=== PATIENT | male | born 1995 | race Caucasian/White ===

== ENCOUNTER 2019-07-03 13:03 | Emergency (ER) | payer MEDICAID ==
--- NOTE | 2019-07-03 13:38 | ED Physician Documentation ---
PD HPI NVD - Stated complaint Stated Complaint: N/V - Chief complaint Chief Complaint: Abd Pain - History obtained from History obtained from: Patient - History of Present Illness Timing - onset: How many days ago (2) Timing - duration: Days (2) Timing - details: Gradual onset, Still present Associated symptoms: Abdominal pain, Hematemesis, Dizzy, Near syncope / syncope, Loss of appetite Contributing factors: Other (had red meat) Improved by: Vomiting Worsened by: Eating Similar symptoms before: Diagnosis (stomach sensitivity) Recently seen: Not recently seen - Additonal information Additional information: Previously well 24-year-old male who has a history of a touchy stomach and frequent episodes of vomiting has developed a episode of vomiting beginning 2 nights ago and he has vomited some black looking material and now he has the dry heaves. He has had this happen to him previously after eating red meat and he did eat red meat. He states that he has had this happening to him since he was in high school and before he ever used cannabis. He does state that he has periods of time where he has vomiting for several days. He states this can be b rought on by stress and by eating red meat. He downplays his cannabis use to 2 bowls at night to help him sleep. Review of Systems Constitutional: denies: Fever Eyes: denies: Decreased vision Ears: denies: Ear pain Nose: denies: Congestion Throat: denies: Sore throat Cardiac: denies: Chest pain / pressure, Palpitations Respiratory: denies: Dyspnea, Cough GI: reports: Abdominal Pain, Nausea, Vomiting, Hematemesis. denies: Constipation, Diarrhea : denies: Dysuria, Frequency PD PAST MEDICAL HISTORY - Allergies Allergies/Adverse Reactions: Allergies Allergy/AdvReac Type Severity Reaction Status Date / Time No Known Drug Allergies Allergy Verified 07/03/19 13:09 PD ED PE NORMAL - General General: Alert and oriented X 3, Well developed/nourished, Other (Thin appearing male who is anxious.) - HEENT HEENT: Atraumatic, PERRL, EOMI - Neck Neck: Supple, no meningeal sign, No bony TTP - Cardiac Cardiac: RRR, No murmur - Respiratory Respiratory: No respiratory distress, Clear bilaterally - Abdomen Abdomen: Normal bowel sounds, Soft, Non tender, Non distended - Back Back: No CVA TTP, No spinal TTP - Derm Derm: Normal color, Warm and dry, No rash - Extremities Extremities: No deformity, No edema, No calf tenderness / cord - Neuro Neuro: Alert and oriented X 3, 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, No motor deficit, No sensory deficit, Normal speech Eye Opening: Spontaneous Motor: Obeys Commands Verbal: Oriented GCS Score: 15 - Psych Psych: Normal mood, Normal affect Results - Vitals Vitals: Vital Signs - 24 hr 07/03/19 07/03/19 13:09 15:29 Temperature 37.3 C Heart Rate 92 60 Respiratory 18 17 Rate Blood Pressure 137/90 H 137/85 H O2 Saturation 97 100 Oxygen O2 Source Room air - Labs Labs: Laboratory Tests 07/03/19 07/03/19 13:40 13:40 WBC 20.7 H RBC 5.95 Hgb 19.1 H Hct 54.0 H MCV 90.8 MCH 32.1 H MCHC 35.4 RDW 12.5 Plt Count 343 MPV 9.6 Neut # (Auto) 17.5 H Lymph # (Auto) 1.1 L [place] # (Auto) 1.8 H Eos # (Auto) 0.0 Baso # (Auto) 0.1 Absolute Nucleated RBC 0.00 Band Neuts % (Manual) Not Reportable Abnorm Lymph % (Manual) Not Reportable Nucleated RBC % 0.0 Neutrophils # (Manual) Not Reportable Lymphocytes # (Manual) Not Reportable Monocytes # (Manual) Not Reportable Eosinophils # (Manual) Not Reportable Basophils # (Manual) Not Reportable Differential Comment MANUAL=AUTO DIFF WBC Morphology NORMAL APPEARANCE Platelet Estimate NORMAL (130-450,000) Platelet Morphology NORMAL APPEARANCE RBC Morph Micro Appear NORMAL APPEARANCE Sodium 131 L Potassium 3.6 Chloride 84 L Carbon Dioxide 23 Anion Gap 24.0 H BUN 67 H Creatinine 4.0 H Estimated GFR (MDRD) 18 L Glucose 141 H Calcium 10.5 H Total Bilirubin 1.1 H AST 38 ALT 20 Alkaline Phosphatase 70 Total Protein 11.0 H Albumin 6.4 H Globulin 4.6 H Albumin/Globulin Ratio 1.4 Lipase 25 Ethyl Alcohol < 5.0 Procedures - IVC sono (time) 1330 Bedside IVC sono: IVC measures (cm) (0.87), IVC collapsed c insp (cm) (complete), Dehydration (est 2 liter deficit) PD MEDICAL DECISION MAKING - ED course Complexity details: reviewed results, re-evaluated patient, considered differential, d/w patient ED course: 24-year-old male with acute vomiting has had this happen to him previously he is found to be 2 L dehydrated on interrogation the inferior vena cava and an intravenous saline is begun as well as Zofran we will check his blood counts.The patient does of course have improvement with use of hydration he is able to produce some urine his blood work to our is concerning for significant dehydration with acute kidney injury. His kidney injury is concerning and that his creatinine is 4 and he indicates he is only been sick for 2 days. I have discussed the findings with the patient and I have asked him to stay in the hospital overnight for continued hydration and observation and repeat labs. He is amenable to this.Dr. Jimenez is consulted in the case and graciously agrees to admit to the patient to the hospital for observation and repeat laboratory studies and continued hydration. Departure - Departure Disposition: ED Place in Observation Clinical Impression: Dehydration, Acute kidney injury Vomiting Qualifiers: Vomiting type: cyclical vomiting syndrome unrelated to migraine Qualified Code (s): R11.15 - Cyclical vomiting syndrome unrelated to migraine Condition: Fair
[2019-07-03] MEDS: ONDANSETRON 4 MG/2 ML VIAL IVP STA (13:46)
[2019-07-03] MEDS: SODIUM CHLORIDE 0.9% 1,000 ML IV ONE ×2 (13:46→15:00)
[2019-07-03 13:48] LABS: BASOPHILS # (AUTO) 0.1 10^3/uL (0.0-0.1); BASOPHILS % (AUTO) 0.3 %; HGB - HEMOGLOBIN 19.1 g/dL (14.0-18.0); LYMPHOCYTES # (AUTO) 1.1 10^3/uL (1.5-3.5); LYMPHOCYTES % (AUTO) 5.5 %; MEAN CORPUSCULAR HEMOGLOBIN 32.1 pg (27.0-31.0); MEAN CORPUSCULAR HGB CONC 35.4 g/dL (32.0-36.0); MEAN CORPUSCULAR VOLUME 90.8 fL (80.0-94.0); MEAN PLATELET VOLUME 9.6 fL (7.4-11.4); MONOCYTES # (AUTO) 1.8 10^3/uL (0.0-1.0); MONOCYTES % (AUTO) 8.9 %; NEUTROPHILS # (AUTO) 17.5 10^3/uL (1.5-6.6); NEUTROPHILS % (AUTO) 84.5 %; PLT - PLATELET COUNT 343 10^3/uL (130-450); RED BLOOD COUNT 5.95 10^6/uL (4.70-6.10); RED CELL DISTRIBUTION WIDTH 12.5 % (12.0-15.0); WHITE BLOOD COUNT 20.7 x10^3/uL (4.8-10.8)
[2019-07-03] MEDS: DEXAMETHASONE 10 MG/ML VIAL IVP STA (13:52)
[2019-07-03 14:02] LABS: ALBUMIN 6.4 g/dL (3.2-5.5); ALBUMIN/GLOBULIN RATIO 1.4 (1.0-2.2); ALKALINE PHOSPHATASE 70 IU/L (42-121); ALT ALANINE AMINOTRANSFERASE 20 IU/L (10-60); AST ASPARTATE AMINOTRANSFERASE 38 IU/L (10-42); BILIRUBIN,TOTAL 1.1 mg/dL (0.2-1.0); BUN - BLOOD UREA NITROGEN 67 mg/dL (6-20); CALCIUM 10.5 mg/dL (8.5-10.3); CARBON DIOXIDE - CO2 23 mmol/L (21-32); CHLORIDE 84 mmol/L (101-111); GLUCOSE 141 mg/dL (70-100); LIPASE 25 U/L (22-51); SODIUM 131 mmol/L (135-145)
[2019-07-03 14:12] LABS: PLATELET MORPHOLOGY NORMAL APPEARANCE (NORMAL); RBC MORPHOLOGY (MULTIPLE) NORMAL APPEARANCE (NORMAL)
[2019-07-03 14:13] LABS: DIFFERENTIAL COMMENT MANUAL=AUTO DIFF; PLATELET ESTIMATE, MANUAL NORMAL (130-450,000) (NORMAL)
[2019-07-03 15:59] VITALS: BP 110/70
[2019-07-03] MEDS ORDERED: ONDANSETRON 4 MG/2 ML VIAL IVP PRN (16:12)
[2019-07-03] MEDS ORDERED: HYDROmorphone 0.5 MG/0.5 ML SYRINGE IVP PRN (16:12)
[2019-07-03] MEDS ORDERED: SODIUM CHLORIDE FLUSH 0.9% 10 ML SYRINGE IVP PRN (16:12)
[2019-07-03] MEDS ORDERED: PROCHLORPERAZINE 10 MG/2 ML VIAL IVP PRN (16:12)
[2019-07-03] MEDS ORDERED: SODIUM CHLORIDE 0.9% 1,000 ML IV SCH (17:00)
[2019-07-03] MEDS ORDERED: SODIUM CHLORIDE FLUSH 0.9% 10 ML SYRINGE IVP SCH (17:00)
[2019-07-03] MEDS ORDERED: FAMOTIDINE 20 MG/2 ML SYRINGE IVP SCH (21:00)
== END 2019-07-03 16:38 | disposition left against medical advice (07) ==
LOC: ED 13:03
DX: E86.0 Dehydration (principal); N17.9 Acute kidney failure, unspecified; R11.15 Cyclical vomiting syndrome unrelated to migraine; Z53.20 Procedure and treatment not carried out because of patient's decision for unspecified reasons
CPT/HCPCS: 36415; 80053; 80320; 83690; 85025; 96361; 96374; 96375; 99284

== ENCOUNTER 2019-07-04 09:08 | Emergency (ER) | payer MEDICAID ==
--- NOTE | 2019-07-04 09:40 | ED Physician Documentation ---
PD HPI NVD - Stated complaint Stated Complaint: VOMITING - Chief complaint Chief Complaint: Abd Pain - History obtained from History obtained from: Patient - History of Present Illness Timing - onset: How many days ago (several) Timing - duration: Days (he had had 2-3 days of nausea and vomiting and seen in ER yesterday with IV fluids and antiemetics. He says his nausea has improved and he is taking oral fluids since yesterday. Had elevated creatinine of 4 yesterday and had been offered admission to hospital but opted for home and was to return for repeat labs today. Here for eval/labs. He says he is feeling improved.) Timing - details: Abrupt onset, Now resolved Associated symptoms: Loss of appetite. No: Fever, Near syncope / syncope, Dysuria Recently seen: Emergency Dept (yesterday) Review of Systems Constitutional: denies: Fever Nose: denies: Rhinorrhea / runny nose, Congestion Throat: denies: Sore throat Respiratory: denies: Cough GI: reports: Nausea, Vomiting, Diarrhea. denies: Abdominal Swelling, Hematemesis Neurologic: reports: Generalized weakness Endocrine: denies: Weight loss (states has always been thin, denies eating disorder.) PD PAST MEDICAL HISTORY - Past Medical History Cardiovascular: None Respiratory: None Neuro: Seizure disorder Endocrine/Autoimmune: None GI: None : None HEENT: None Psych: None Musculoskeletal: None Derm: None - Past Surgical History Past Surgical History: No - Present Medications Home Medications: Ambulatory Orders Medication Instructions Recorded Confirmed Famotidine 20 mg PO DAILY #30 tablet 07/04/19 Ondansetron Odt [Zofran] 4 mg TL Q6H PRN #20 tablet 07/04/19 - Allergies Allergies/Adverse Reactions: Allergies Allergy/AdvReac Type Severity Reaction Status Date / Time No Known Drug Allergies Allergy Verified 07/04/19 09:13 - Social History Does the pt smoke?: Yes Smoking Status: Current every day smoker Does the pt drink ETOH?: No Does the pt have substance abuse?: Yes Substance Use and Type: Marijuana - Immunizations Immunizations are current?: Yes - POLST Patient has POLST: No PD ED PE NORMAL - Vitals Vital signs reviewed: Yes - General General: Alert and oriented X 3, No acute distress, Well developed/nourished - HEENT HEENT: Pharynx benign. No: Moist mucous membranes - Neck Neck: Supple, no meningeal sign, No adenopathy - Cardiac Cardiac: RRR, No murmur - Respiratory Respiratory: Clear bilaterally - Abdomen Abdomen: Soft, Non tender, Non distended, Other (generally thin) Results - Vitals Vitals: Oxygen O2 Source Room air - Labs Labs: Laboratory Tests 07/04/19 07/04/19 07/04/19 09:35 09:35 09:35 WBC 15.2 H RBC 5.10 Hgb 16.6 Hct 47.3 MCV 92.7 MCH 32.5 H MCHC 35.1 RDW 12.4 Plt Count 293 MPV 9.5 Neut # (Auto) 11.4 H Lymph # (Auto) 1.6 [place] # (Auto) 2.0 H Eos # (Auto) 0.1 Baso # (Auto) 0.0 Absolute Nucleated RBC 0.00 Nucleated RBC % 0.0 Manual Slide Review Indicated RBC Morph Micro Appear 1+ ANISOCYTOSIS Sodium 132 L Potassium 3.6 Chloride 90 L Carbon Dioxide 30 Anion Gap 12.0 BUN 31 H Creatinine 0.9 Estimated GFR (MDRD) 102 Glucose 104 H Calcium 9.9 Magnesium 2.6 Total Bilirubin 1.2 H AST 41 ALT 18 Alkaline Phosphatase 56 Total Protein 8.9 H Albumin 5.3 Globulin 3.7 Albumin/Globulin Ratio 1.5 Lipase 66 H Urine Color Urine Clarity Urine pH Ur Specific [place] Urine Protein Urine Glucose (UA) Urine Ketones Urine Occult Blood Urine Nitrite Urine Bilirubin Urine Urobilinogen Ur Leukocyte Esterase Urine RBC Urine WBC Ur Squamous Epith Cells Urine Bacteria Ur Microscopic Review Urine Culture Comments 07/04/19 09:43 WBC RBC Hgb Hct MCV MCH MCHC RDW Plt Count MPV Neut # (Auto) Lymph # (Auto) [place] # (Auto) Eos # (Auto) Baso # (Auto) Absolute Nucleated RBC Nucleated RBC % Manual Slide Review RBC Morph Micro Appear Sodium Potassium Chloride Carbon Dioxide Anion Gap BUN Creatinine Estimated GFR (MDRD) Glucose Calcium Magnesium Total Bilirubin AST ALT Alkaline Phosphatase Total Protein Albumin Globulin Albumin/Globulin Ratio Lipase Urine Color DARK YELLOW Urine Clarity CLEAR Urine pH 6.0 Ur Specific [place] 1.025 Urine Protein 30 H Urine Glucose (UA) NEGATIVE Urine Ketones NEGATIVE Urine Occult Blood TRACE-INTA Urine Nitrite NEGATIVE Urine Bilirubin NEGATIVE Urine Urobilinogen 0.2 (NORMAL) Ur Leukocyte Esterase NEGATIVE Urine RBC 0-5 Urine WBC 0-3 Ur Squamous Epith Cells RARE Squamous Urine Bacteria Rare Ur Microscopic Review INDICATED Urine Culture Comments NOT INDICATED PD MEDICAL DECISION MAKING - ED course Complexity details: reviewed results (kidney function has improved quite quickly. ), d/w patient Departure - Departure Disposition: 01 Home, Self Care Clinical Impression: Nausea and vomiting Qualifiers: Vomiting type: unspecified Vomiting Intractability: unspecified Qualified Code(s): R11.2 - Nausea with vomiting, unspecified Condition: Stable Record reviewed to determine appropriate education?: Yes Instructions: ED Nausea Vomiting Follow-Up: [facility] [Provider Group] [facility] [Provider Group] Prescriptions: Famotidine 20 mg PO DAILY #30 tablet Ondansetron Odt [Zofran] 4 mg TL Q6H PRN #20 tablet PRN Reason: Nausea / Vomiting Comments: Stay well-hydrated. Your blood tests improved considerably to normal from yesterday to today. Use ondansetron if needed for nausea. You certainly likely have an irritated stomach from the vomiting and so use some famotidine acid reducing medicine daily for at least a week. Consider it for a month or so and see if you just do not have any stomach symptoms as this may have been an irritated stomach (desiree ritis) as a cause of it. I gave a couple of numbers for clinics in [facility] for follow-up. Discharge Date/Time: 07/04/19 11:11
[2019-07-04 09:49] LABS: BASOPHILS % (AUTO) 0.2 %; EOSINOPHILS # (AUTO) 0.1 10^3/uL (0.0-0.7); EOSINOPHILS % (AUTO) 0.4 %; HGB - HEMOGLOBIN 16.6 g/dL (14.0-18.0); LYMPHOCYTES # (AUTO) 1.6 10^3/uL (1.5-3.5); LYMPHOCYTES % (AUTO) 10.8 %; MEAN CORPUSCULAR HEMOGLOBIN 32.5 pg (27.0-31.0); MEAN CORPUSCULAR HGB CONC 35.1 g/dL (32.0-36.0); MEAN CORPUSCULAR VOLUME 92.7 fL (80.0-94.0); MEAN PLATELET VOLUME 9.5 fL (7.4-11.4); MONOCYTES % (AUTO) 13.1 %; NEUTROPHILS # (AUTO) 11.4 10^3/uL (1.5-6.6); NEUTROPHILS % (AUTO) 74.8 %; PLT - PLATELET COUNT 293 10^3/uL (130-450); RED CELL DISTRIBUTION WIDTH 12.4 % (12.0-15.0); WHITE BLOOD COUNT 15.2 x10^3/uL (4.8-10.8)
[2019-07-04 10:03] LABS: ALBUMIN 5.3 g/dL (3.2-5.5); ALBUMIN/GLOBULIN RATIO 1.5 (1.0-2.2); BILIRUBIN,TOTAL 1.2 mg/dL (0.2-1.0); CALCIUM 9.9 mg/dL (8.5-10.3); CREATININE 0.9 mg/dL (0.6-1.2); TOTAL PROTEIN 8.9 g/dL (6.7-8.2)
[2019-07-04] MEDS: SODIUM CHLORIDE 0.9% 1,000 ML IV ONE (10:05)
[2019-07-04 10:07] LABS: RBC MORPHOLOGY (MULTIPLE) 1+ ANISOCYTOSIS (NORMAL)
[2019-07-04 10:15] LABS: BILIRUBIN,URINE NEGATIVE (NEGATIVE); GLUCOSE, URINE (UA) NEGATIVE (NEGATIVE); KETONES,URINE (UA) NEGATIVE (NEGATIVE); LEUKOCYTE ESTERASE, URINE NEGATIVE (NEGATIVE); NITRITE,URINE NEGATIVE (NEGATIVE); OCCULT BLOOD,URINE TRACE-INTA (NEGATIVE); PROTEIN,URINE 30 mg/dL (NEGATIVE); UROBILINOGEN,URINE 0.2 (NORMAL) E.U./dL (NORMAL)
[2019-07-04 10:16] LABS: CLARITY,URINE CLEAR (CLEAR)
[2019-07-04 10:26] LABS: BACTERIA,URINE Rare /HPF (None Seen); RBC,URINE 0-5 /HPF (0-5); SQUAMOUS EPITHELIAL CELL,UR RARE Squamous (<= Few)
[2019-07-04 11:11] VITALS: BP 145/72
== END 2019-07-04 11:11 | disposition home or self-care (01) ==
LOC: ED 09:08
DX: R11.2 Nausea with vomiting, unspecified (principal); F17.200 Nicotine dependence, unspecified, uncomplicated
CPT/HCPCS: 36415; 80053; 81001; 81003; 83690; 83735; 85025; 87086; 99283

== ENCOUNTER 2021-10-08 13:46 | Outpatient (CLI) | payer OTHER ==
[2021-10-08 19:17] LABS: BASOPHILS % (AUTO) 0.4 %; EOSINOPHILS % (AUTO) 0.3 %; HCT - HEMATOCRIT 45.3 % (42.0-52.0); HGB - HEMOGLOBIN 15.4 g/dL (14.0-18.0); LYMPHOCYTES % (AUTO) 5.6 %; MEAN CORPUSCULAR HEMOGLOBIN 32.8 pg (27.0-31.0); MEAN CORPUSCULAR VOLUME 96.6 fL (80.0-94.0); MEAN PLATELET VOLUME 10.6 fL (7.4-11.4); MONOCYTES % (AUTO) 9.3 %; NEUTROPHILS % (AUTO) 83.6 %; PLT - PLATELET COUNT 288 10^3/uL (130-450); RED BLOOD COUNT 4.69 10^6/uL (4.70-6.10); RED CELL DISTRIBUTION WIDTH 12.4 % (12.0-15.0); WHITE BLOOD COUNT 23.2 x10^3/uL (4.8-10.8)
[2021-10-08 19:28] LABS: ABNORMAL LYMPHS % (MANUAL) 0 %
[2021-10-08 19:51] LABS: ALBUMIN 4.3 g/dL (3.2-5.5); ALBUMIN/GLOBULIN RATIO 0.9 (1.0-2.2); BILIRUBIN,TOTAL 0.9 mg/dL (0.2-1.0); CALCIUM 9.8 mg/dL (8.5-10.3); CREATININE 0.9 mg/dL (0.6-1.2); CRP - C-REACTIVE PROTEIN 16.4 mg/dL (0-1.0); POTASSIUM 4.2 mmol/L (3.5-5.0); TOTAL PROTEIN 9.1 g/dL (6.7-8.2)
[2021-10-08 20:16] LABS: BAND NEUTROPHILS % (MANUAL) 2 %; EOSINOPHILS # (MANUAL) 0.2 10^3/uL (0-0.7); LYMPHOCYTES # (MANUAL) 0.7 10^3/uL (1.5-3.5); LYMPHOCYTES % (MANUAL) 3 %; MONOCYTES # (MANUAL) 0.5 10^3/uL (0.0-1.0); NEUTROPHILS # (MANUAL) 21.8 10^3/uL (1.5-6.6)
[2021-10-08 20:17] LABS: DIFFERENTIAL COMMENT MANUAL DIFFERENTIAL; PLATELET ESTIMATE, MANUAL NORMAL (130-450,000) (NORMAL); PLATELET MORPHOLOGY NORMAL APPEARANCE (NORMAL); RBC MORPHOLOGY (MULTIPLE) NORMAL APPEARANCE (NORMAL); WBC MORPHOLOGY (MULTIPLE) NORMAL APPEARANCE (NORMAL)
== END 2021-10-08 13:47 | disposition home or self-care (01) ==
LOC: LAB.S 13:46
PROVIDERS: ATTEND Registered Nurse
DX: L03.113 Cellulitis of right upper limb (principal)
CPT/HCPCS: 36415; 80053; 85025; 86140

== ENCOUNTER 2021-10-08 14:42 | Emergency (ER) | payer OTHER ==
[2021-10-08] MEDS ORDERED: MORPHINE 10 MG/ML VIAL IVP STA (15:01)
[2021-10-08] MEDS ORDERED: cefTRIAXone 1 GM in SODIUM CHLORIDE 0.9% MINIBAG 100 ML IV STA (15:01)
--- NOTE | 2021-10-08 15:03 | ED Physician Documentation ---
History of Present Illness - Stated complaint Stated Complaint: R HAND INFECTION - Chief complaint Chief Complaint: Ext Problem - History obtained from History obtained from: Patient - History of Present Illness Timing: How many days ago (2) - Additonal information Additional information: 26-year-old male with no reported past medical history presents for ring finger pain and swelling for 2 days. Patient states that he was picking up a couch cushion when something sharp poked him in the side of his right ring finger. He states that it rapidly became red and swollen and very painful. He presented to the walk-in clinic, who referred him to the ER for further treatment. Patient states that his ring finger is extremely painful. He has been trying to push down the swelling, but it has not been successful. Any movement hurts his finger. Review of Systems Ten Systems: 10 systems reviewed and negative Constitutional: denies: Fever, Chills, Myalgias Nose: denies: Rhinorrhea / runny nose, Congestion, Foreign Body Throat: denies: Dental pain / toothache, Oral lesions / sores, Sore throat GI: denies: Abdominal Pain, Abdominal Swelling, Nausea, Vomiting, Constipation, Diarrhea : denies: Dysuria, Frequency, Hesitancy Skin: reports: Rash Musculoskeletal: reports: Extremity pain PD PAST MEDICAL HISTORY - Past Medical History Cardiovascular: None Respiratory: None Neuro: Seizure disorder Endocrine/Autoimmune: None GI: None : None HEENT: None Psych: None Musculoskeletal: None Derm: None - Past Surgical History Past Surgical History: No - Present Medications Home Medications: Ambulatory Orders Medication Instructions Recorded Confirmed Famotidine 20 mg PO DAILY #30 tablet 07/04/19 Ondansetron Odt [Zofran] 4 mg TL Q6H PRN #20 tablet 07/04/19 - Allergies Allergies/Adverse Reactions: Allergies Allergy/AdvReac Type Severity Reaction Status Date / Time No Known Drug Allergies Allergy Verified 10/08/21 14:54 - Social History Does the pt smoke?: Yes Smoking Status: Current every day smoker Does the pt drink ETOH?: No Does the pt have substance abuse?: Yes - Immunizations Immunizations are current?: Yes - POLST Patient has POLST: No PD ED PE NORMAL - Vitals Vital signs reviewed: Yes - General General: Alert and oriented X 3, Well developed/nourished, Other (IN PAIN) - HEENT HEENT: Atraumatic, PERRL, EOMI, Ears normal, Moist mucous membranes - Neck Neck: Supple, no meningeal sign, No bony TTP, No JVD - Cardiac Cardiac: No murmur, Strong equal pulses, Other (TACHYCARDIA) - Respiratory Respiratory: No respiratory distress, Clear bilaterally - Abdomen Abdomen: Soft, Non tender, Non distended - Back Back: No CVA TTP, No spinal TTP - Derm Derm: Warm and dry, Other (erythema R ring finger) - Extremities Extremities: Other (R ring finger erythema, sausage digit, pain with passive extension) - Neuro Neuro: Alert and oriented X 3, 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, No motor deficit, No sensory deficit, Normal speech - Psych Psych: Normal mood, Normal affect Results - Vitals Vitals: Oxygen O2 Source Room air - Labs Labs: Laboratory Tests 10/08/21 10/08/21 10/08/21 15:07 15:17 15:17 WBC 21.1 H RBC 4.86 Hgb 15.9 Hct 45.7 MCV 94.0 MCH 32.7 H MCHC 34.8 RDW 12.0 Plt Count 266 MPV 9.8 Neut # (Auto) Not Reportable Lymph # (Auto) Not Reportable [place] # (Auto) Not Reportable Eos # (Auto) Not Reportable Baso # (Auto) Not Reportable Absolute Nucleated RBC Not Reportable Total Counted 100 Band Neuts % (Manual) 2 Abnorm Lymph % (Manual) 0 Nucleated RBC % Not Reportable Neutrophils # (Manual) 17.3 H Lymphocytes # (Manual) 1.5 Monocytes # (Manual) 2.3 H Eosinophils # (Manual) 0.0 Basophils # (Manual) 0.0 Differential Comment MANUAL DIFFERENTIAL WBC Morphology NORMAL APPEARANCE Platelet Estimate NORMAL (130-450,000) Platelet Morphology NORMAL APPEARANCE RBC Morph Micro Appear NORMAL APPEARANCE ESR Sodium 131 L Potassium 3.6 Chloride 91 L Carbon Dioxide 25 Anion Gap 15.0 H BUN 11 Creatinine 0.8 Estimated GFR (MDRD) 115 Glucose 111 H Calcium 10.2 Total Bilirubin 0.9 AST 33 ALT 30 Alkaline Phosphatase 77 C-Reactive Protein 18.9 H Total Protein 9.7 H Albumin 4.7 Globulin 5.0 H Albumin/Globulin Ratio 0.9 L SARS-CoV-2 (PCR) NOT DETECTED 10/08/21 15:17 WBC RBC Hgb Hct MCV MCH MCHC RDW Plt Count MPV Neut # (Auto) Lymph # (Auto) [place] # (Auto) Eos # (Auto) Baso # (Auto) Absolute Nucleated RBC Total Counted Band Neuts % (Manual) Abnorm Lymph % (Manual) Nucleated RBC % Neutrophils # (Manual) Lymphocytes # (Manual) Monocytes # (Manual) Eosinophils # (Manual) Basophils # (Manual) Differential Comment WBC Morphology Platelet Estimate Platelet Morphology RBC Morph Micro Appear ESR 33 H Sodium Potassium Chloride Carbon Dioxide Anion Gap BUN Creatinine Estimated GFR (MDRD) Glucose Calcium Total Bilirubin AST ALT Alkaline Phosphatase C-Reactive Protein Total Protein Albumin Globulin Albumin/Globulin Ratio SARS-CoV-2 (PCR) PD MEDICAL DECISION MAKING - ED course Complexity details: reviewed results, re-evaluated patient, d/w patient, d/w family ED course: Right ring finger pain and swelling, has spread rapidly over the last 2 days. Concern is for flexor tenosynovitis. Patient does have sausage digit, pain along the flexor sheath, pain with even passive extension, finger is held in flexed position. We will give broad-spectrum IV antibiotics, plan to transfer. Accepted by [facility] for transfer. Departure - Departure Disposition: 02 Transfer Acute Care Hosp Clinical Impression: Flexor tenosynovitis of finger Condition: Stable Discharge Date/Time: 10/08/21 20:04
--- NOTE | 2021-10-08 15:23 | XRAY Report ---
PROCEDURE: Finger(s) RT INDICATIONS: RING FINGER INFECTION TECHNIQUE: AP hand, 2 views of the right fourth finger(s) acquired. COMPARISON: None FINDINGS: Bones: No fractures or dislocations. No suspicious bony lesions. No osseous erosions. No periosteal reaction. Soft tissues: No suspicious soft tissue calcifications. No soft tissue gas. IMPRESSION: No jake evidence of osteomyelitis. Please note plain-film radiographs can be insensitive to changes of osteomyelitis in the initial 15 days of the disease. If there is continued clinical concern for os teomyelitis, consider three-phase nuclear medicine bone scan or MRI for additional evaluation. Reviewed by: Brigette Greenfield MD, PhD on 10/08/2021 3:21 PM PDT Approved by: Brigette Greenfield MD, PhD on 10/08/2021 3:21 PM PDT Station ID: [id number]
[2021-10-08 15:26] LABS: BASOPHILS % (AUTO) 0.4 %; EOSINOPHILS % (AUTO) 0.2 %; HCT - HEMATOCRIT 45.7 % (42.0-52.0); HGB - HEMOGLOBIN 15.9 g/dL (14.0-18.0); LYMPHOCYTES % (AUTO) 6.5 %; MEAN CORPUSCULAR HEMOGLOBIN 32.7 pg (27.0-31.0); MEAN CORPUSCULAR HGB CONC 34.8 g/dL (32.0-36.0); MEAN PLATELET VOLUME 9.8 fL (7.4-11.4); NEUTROPHILS % (AUTO) 83.2 %; PLT - PLATELET COUNT 266 10^3/uL (130-450); RED BLOOD COUNT 4.86 10^6/uL (4.70-6.10); WHITE BLOOD COUNT 21.1 x10^3/uL (4.8-10.8)
[2021-10-08 15:30] LABS: ABNORMAL LYMPHS % (MANUAL) 0 %
[2021-10-08 15:55] LABS: ALBUMIN 4.7 g/dL (3.2-5.5); ALBUMIN/GLOBULIN RATIO 0.9 (1.0-2.2); BILIRUBIN,TOTAL 0.9 mg/dL (0.2-1.0); CALCIUM 10.2 mg/dL (8.5-10.3); CREATININE 0.8 mg/dL (0.6-1.2); CRP - C-REACTIVE PROTEIN 18.9 mg/dL (0-1.0); POTASSIUM 3.6 mmol/L (3.5-5.0); TOTAL PROTEIN 9.7 g/dL (6.7-8.2)
[2021-10-08] MEDS ORDERED: VANCOMYCIN INJ 1 GM in SODIUM CHLORIDE 0.9% 500 ML IV SCH (16:00)
[2021-10-08 16:03] LABS: BAND NEUTROPHILS % (MANUAL) 2 %; LYMPHOCYTES # (MANUAL) 1.5 10^3/uL (1.5-3.5); LYMPHOCYTES % (MANUAL) 7 %; MONOCYTES # (MANUAL) 2.3 10^3/uL (0.0-1.0); NEUTROPHILS # (MANUAL) 17.3 10^3/uL (1.5-6.6)
[2021-10-08 16:04] LABS: DIFFERENTIAL COMMENT MANUAL DIFFERENTIAL; PLATELET ESTIMATE, MANUAL NORMAL (130-450,000) (NORMAL); PLATELET MORPHOLOGY NORMAL APPEARANCE (NORMAL); RBC MORPHOLOGY (MULTIPLE) NORMAL APPEARANCE (NORMAL); WBC MORPHOLOGY (MULTIPLE) NORMAL APPEARANCE (NORMAL)
--- NOTE | 2021-10-08 18:50 | ED Physician Documentation ---
ED Addendum - Addendum Addendum: 10/08/21 18:49 Care handed over me to me by Dr. Moreland at shift change. He has been accepted to [facility] ED by Dr. Rimma Hewitt at 6:49 PM and cobras are completed. He is stable for transport. Diagnosis: Flexor tenosynovitis of the right hand Condition: Stable Disposition: Transferred to [facility] ED 10/08/21 21:44
[2021-10-08 20:05] VITALS: BP 135/89
== END 2021-10-08 20:04 | disposition short-term general hospital (02) ==
LOC: ED 14:42
DX: S63.614A Unspecified sprain of right ring finger, initial encounter (principal); W26.8XXA Contact with other sharp object(s), not elsewhere classified, initial encounter; Y93.89 Activity, other specified; F17.200 Nicotine dependence, unspecified, uncomplicated; Z20.822 Contact with and (suspected) exposure to COVID-19
CPT/HCPCS: 36415; 73140; 80053; 85025; 85651; 86140; 87635; 96365; 96366; 96368; 96375; 99284; 99285; J3370